=== PATIENT | female | born 1970 | race Caucasian/White ===

== ENCOUNTER 2016-11-14 15:21 | Emergency (ER) | payer MEDICAID, OTHER ==
[~2016-11-14] VITALS: Ht 157.5 cm; Wt 72.5 kg
[2016-11-14 15:25] VITALS: Ht 157.5 cm; Wt 72.5 kg
[2016-11-14] MEDS ORDERED: HYDROCODONE/APAP (5/325) TAB PO ONE (17:00)
[2016-11-14 17:39] LABS: URINE BLOOD (Dip) POC Negative (NEGATIVE)
[2016-11-14] MEDS ORDERED: CEPH-443 PO (17:48)
[2016-11-14] MEDS ORDERED: NAPR-260 PO (17:48)
--- NOTE | 2016-11-14 18:12 | ERD ---
ER Documentation Chief Complaint Date/Time DATE: 11/14/16 TIME: 18:10 Chief Complaint BACK PAIN RADIATING TO LT LEG X 12 DAYS HPI 46-year-old female presents with bilateral flank pain, she also states she has left foot pain. Pain has been for 2 weeks, achy, diffuse. She states it started after she was mopping her she also reports painful urination and frequent urination. She denies any fevers, chills, vomiting diarrhea. Denies abdominal pain. She also states she has plantar pain on the left foot. It is diffuse, achy. ROS All systems reviewed and are negative except as per history of present illness. Medications Home Meds Active Scripts Cephalexin* (Keflex*) 500 Mg Capsule, 500 MG PO TID for 7 Days, CAP Prov:CORRIE LAMBERT PA-C 11/14/16 Naproxen* (Naprosyn*) 500 Mg Tablet, 500 MG PO BID Y for PAIN AND/OR INFLAMMATION, #30 TAB Prov:CORRIE LAMBERT PA-C 11/14/16 Allergies Allergies: Coded Allergies: No Known Allergy (Verified Allergy, Unknown, 12/01/07) PMhx/Soc History of Surgery: No Anesthesia Reaction: No Hx Neurological Disorder: No Hx Respiratory Disorders: No Hx Cardiac Disorders: No Hx Psychiatric Problems: No Hx Miscellaneous Medical Probl: No Hx Alcohol Use: No Hx Substance Use: No Hx Tobacco Use: No Physical Exam Vitals Vital Signs Date Time Temp Pulse Resp B/P Pulse Ox O2 Delivery O2 Flow Rate FiO2 11/14/16 15:25 98.8 78 18 110/58 99 Physical Exam General: Well-developed, well-nourished. The patient appears in no acute distress. HEENT: Head is normocephalic, atraumatic. No scleral icterus. Neck: Supple. Nontender. Lungs: Clear to auscultation. Normal air movement. Heart: Regular rate and rhythm. S1 and S2 are normal. No murmurs, gallops, or rubs. Abdomen: Soft, nontender, nondistended. Bowel sounds are normoactive. Positive CVA tenderness bilaterally Extremities: Tender at the bottom of the left foot, no bony deformities, no ecchymosis. Neurologic: Alert and oriented 3. No focal deficits. Skin: Normal turgor. No rash or lesions. Results 24 hrs Laboratory Tests Test 11/14/16 17:45 Bedside Urine pH (LAB) 7.0 Bedside Urine Protein (LAB) Trace Bedside Urine Glucose (UA) Negative Bedside Urine Ketones (LAB) Negative Bedside Urine Blood Negative Bedside Urine Nitrite (LAB) Negative Bedside Urine Leukocyte Esterase (L Trace Current Medications Medications (Trade) Dose Ordered Sig/Jose Route PRN Reason Start Time Stop Time Status Last Admin Dose Admin Acetaminophen/ Hydrocodone Bitart ([place] (5/325)) 1 tab ONCE ONCE PO 11/14/16 17:00 11/14/16 17:01 DC 11/14/16 17:58 X-ray Foot 3V Interpreted by me as well as radiologist: Bones: No fracture Joints: No dislocation Foreign body: None Procedures/MDM ED course: Patient was given [place] for pain. Patient's left foot was placed in a postop shoe. Medical decision making: This 46-year-old female presents with left foot pain, as well as bilateral flank pain. She has associated frequent urination painful urination will be treated for urinary tract infection. Suspicion for nephrolithiasis,, septic kidney stones, renal failure, dissection, cauda equina , epidural abscess is low. There is no midline pain, no step-offs, no rashes. She will be given Keflex as well as Naprosyn for pain. Left foot is likely from plantar fasciitis. Departure Diagnosis: Primary Impression: Back pain Additional Impression: Foot pain Condition: Good Patient Instructions: Understanding Urinary Tract Infections (UTIs), Treating Tendonitis of the Foot Additional Instructions: Llame al doctor MAANA y roscoe andrea ALEJANDRA PARA DENTRO DE 1-2 GURROLA.Dgale a la secretaria que nosotros le instruimos hacer esta alejandra.Avise o llame si chao condicin se empeora antes de la alejandra. Regresa aqui si peor o no mejor. CORRIE LAMBERT PA-C Nov 14, 2016 18:12
--- NOTE | 2016-11-14 18:12 | RADRPT ---
PROCEDURE: XR Left Foot. CLINICAL INDICATION: Left foot pain. TECHNIQUE: Three views. Frontal, lateral, and oblique. COMPARISON: None. FINDINGS: There is no fracture or dislocation. The soft tissues are normal. Articular surfaces are intact. There is no lytic or blastic lesion. There is no radiopaque foreign body. IMPRESSION: 1. Normal images of the left foot. RPTAT: QQ .Jama Katz MD, MD Date Time Electronically viewed and signed by .Jama Katz MD, on 11/14/2016 18:12 .R/
== END 2016-11-14 18:43 | disposition home or self-care (01) ==
LOC: FTE 15:21
DX: M54.9 Dorsalgia, unspecified (principal); M79.672 Pain in left foot
CPT/HCPCS: 73630; 81003; Z7502; Z7610

== ENCOUNTER 2016-12-03 07:21 | Emergency (ER) | payer MEDICAID ==
[~2016-12-03] VITALS: Ht 157.5 cm; Wt 72.0 kg
[~2016-12-03 07:21] MED LIST: CEPH-443 PO; NAPR-260 PO
[2016-12-03 07:24] VITALS: Ht 157.5 cm; Wt 72.0 kg
[2016-12-03] MEDS ORDERED: KETOROLAC 30 MG INJ IM STA (07:46)
[2016-12-03 07:53] LABS: URINE BLOOD (Dip) POC Negative (NEGATIVE)
--- NOTE | 2016-12-03 08:27 | RADRPT ---
PROCEDURE: Lumbar spine series CLINICAL INDICATION: Pain TECHNIQUE: AP lateral and coned lateral views lumbar spine were obtained COMPARISON: None FINDINGS: There is exaggerated lumbar lordosis. There is no evidence of acute fractures or subluxations. The bony mineralization is normal. No focal bony blastic or lytic lesions. The posterior elements are intact. IMPRESSION: No evidence of fractures or subluxations. RPTAT:AAJJ Physician Silvino Date Time Electronically viewed and signed by Chandni Tamez Physician on 12/03/2016 08:26 /
--- NOTE | 2016-12-03 08:30 | RADRPT ---
PROCEDURE: XR Left Foot. CLINICAL INDICATION: pain x 2 mos TECHNIQUE: AP, lateral , calcaneal and oblique views of the left foot was obtained. Delete the COMPARISON: None. FINDINGS: There is no evidence of acute fractures dislocations. Bony mineralization is normal. No focal bony blastic or lytic lesions. The soft tissues are unremarkable. IMPRESSION: No evidence acute fracture dislocation or erosions. RPTAT:AAJJ Physician Silvino Date Time Electronically viewed and signed by Chandni Tamez Physician on 12/03/2016 08:30 BM/
--- NOTE | 2016-12-03 08:37 | ERD ---
ER Documentation Chief Complaint Date/Time DATE: 12/03/16 TIME: 08:32 Chief Complaint Complains of back pain HPI This a 46-year-old female who presents the emergency department today complaining of back pain and left foot pain for the past 2 months. States he has pain down the right side of her leg. 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 States she has tried acupuncture. States she went to her primary care doctor and had some blood work done and is supposed to get the results in 2 weeks. States she has pain in other areas of her body. States she has some burning with urination. Denies any fevers or chills ROS All systems reviewed and are negative except as per history of present illness. Medications Home Meds Active Scripts Naproxen* (Naprosyn*) 500 Mg Tablet, 500 MG PO BID Y for PAIN AND/OR INFLAMMATION, #30 TAB Prov:LEANDRO TEE PA-C 12/03/16 Cephalexin* (Keflex*) 500 Mg Capsule, 500 MG PO TID for 7 Days, CAP Prov:CORRIE LAMBERT PA-C 11/14/16 Naproxen* (Naprosyn*) 500 Mg Tablet, 500 MG PO BID Y for PAIN AND/OR INFLAMMATION, #30 TAB Prov:CORRIE LAMBERT PA-C 11/14/16 Allergies Allergies: Coded Allergies: No Known Allergy (Verified Allergy, Unknown, 12/01/07) PMhx/Soc Medical and Surgical Hx: pt denies Medical Hx, pt denies Surgical Hx History of Surgery: No Anesthesia Reaction: No Hx Neurological Disorder: No Hx Respiratory Disorders: No Hx Cardiac Disorders: No Hx Psychiatric Problems: No Hx Miscellaneous Medical Probl: No Hx Alcohol Use: No Hx Substance Use: No Hx Tobacco Use: No Smoking Status: Never smoker Physical Exam Vitals Vital Signs Date Time Temp Pulse Resp B/P Pulse Ox O2 Delivery O2 Flow Rate FiO2 12/03/16 07:24 97.5 76 20 113/70 99 Physical Exam Const: Tearful Head: Atraumatic Eyes: Normal Conjunctiva ENT: Normal External Ears, Nose and Mouth. Neck: Full range of motion..~ No meningismus. Resp: Clear to auscultation bilaterally Cardio: Regular rate and rhythm, no murmurs Abd: Soft, non tender, non distended. Normal bowel sounds Skin: No petechiae or rashes Back: No midline tenderness. Bilateral paraspinal tenderness. Decreased range of motion secondary to pain. Pulses 2+. Distal neurovascularly intact Ext: Left foot with no obvious deformity. No effusion. No ecchymosis. Tenderness palpation plantar and calcaneal aspect of foot Psych: Normal Mood and Affect Results 24 hrs Laboratory Tests Test 12/03/16 07:59 Bedside Urine pH (LAB) 6.5 Bedside Urine Protein (LAB) Negative Bedside Urine Glucose (UA) Negative Bedside Urine Ketones (LAB) Negative Bedside Urine Blood Negative Bedside Urine Nitrite (LAB) Negative Bedside Urine Leukocyte Esterase (L Trace Current Medications Medications (Trade) Dose Ordered Sig/Jose Route PRN Reason Start Time Stop Time Status Last Admin Dose Admin Ketorolac Tromethamine (Toradol) 30 mg ONCE STAT IM 12/03/16 07:46 12/03/16 07:48 DC 12/03/16 07:52 DIAGNOSTIC IMAGING REPORT Patient: HORACE CONTE : 1970 Age: 46 Sex: F MR #: [id number] DOS: 12/03/16 0000 Ordering MD: LEANDRO TEE PA-C Location: [facility] Room/Bed: PROCEDURE: XR Left Foot. CLINICAL INDICATION: pain x 2 mos TECHNIQUE: AP, lateral , calcaneal and oblique views of the left foot was obtained. Delete the COMPARISON: None. FINDINGS: There is no evidence of acute fractures dislocations. Bony mineralization is normal. No focal bony blastic or lytic lesions. The soft tissues are unremarkable. IMPRESSION: No evidence acute fracture dislocation or erosions. RPTAT:AAJJ Physician Silvino Date Time Electronically viewed and signed by Physician Silvino on 12/03/2016 08:30 BM/ CC: LEANDRO TEE PA-C DIAGNOSTIC IMAGING REPORT Patient: HORACE CONTE : 1970 Age: 46 Sex: F MR #: [id number] DOS: 12/03/16 0000 Ordering MD: LEANDRO TEE PA-C Location: [facility] Room/Bed: PROCEDURE: Lumbar spine series CLINICAL INDICATION: Pain TECHNIQUE: AP lateral and coned lateral views lumbar spine were obtained COMPARISON: None FINDINGS: There is exaggerated lumbar lordosis. There is no evidence of acute fractures or subluxations. The bony mineralization is normal. No focal bony blastic or lytic lesions. The posterior elements are intact. IMPRESSION: No evidence of fractures or subluxations. RPTAT:AAJJ Physician Silvino Date Time Electronically viewed and signed by Chandni Tamez Physician on 12/03/2016 08:26 BM/ CC: LEANDRO TEE PA-C Procedures/MDM This 46-year-old female who presents the emergency department today complaining of back pain and left foot pain for the past 2 months. Upon review of patient' s medical records this is a patient second visit in the past month for the same complaints. I did obtain images today given patient's persistent complaint Per the radiology report images of the left foot are unremarkable. There is no acute fracture dislocation or erosions. There is no focal bony blastic or lytic lesion. Patient's foot pain most consistent with plantar fasciitis, versus strain. Patient was instructed in wearing proper footwear as the shoes that she is using for work have no support. I have explained this to her. Images of the lumbar spine show an exaggerated lumbar lordosis however there is no evidence of acute fracture or subluxation. There is no focal bony blastic or lytic lesions. Patient symptoms at this time is consistent with sprain versus strain versus chronic pain. UA is negative for infection. Low suspicion for UTI, pyelonephritis or nephrolithiasis as cause of back pain. Patient is afebrile and otherwise well- appearing. Low suspicion for cauda equina abscess. I have explained the results of the patient. I have explained to her that she does need to follow back up with her primary care doctor for referral to orthopedics or physical therapy. Patient was given Toradol here in the emergency department. Patient was given a short course of Naprosyn for home At this time the patient is stable for discharge and outpatient management. Patient should follow up with their PCP in the next 1-2 days. They may return to the emergency department sooner for any persistent or worsening of symptoms. Patient understood and agreed with the plan. Departure Diagnosis: Primary Impression: Back pain Back pain location: low back pain Chronicity: chronic Back pain laterality : bilateral Sciatica presence: with sciatica Sciatica laterality: sciatica of right side Qualified Code: M54.41 - Chronic bilateral low back pain with right-sided sciatica Additional Impression: Foot pain, left Condition: Fair LEANDRO TEE PA-C Dec 03, 2016 08:37
[2016-12-03] MEDS ORDERED: NAPR-260 PO (08:47)
== END 2016-12-03 08:52 | disposition home or self-care (01) ==
LOC: FTE 07:21
DX: M54.41 Lumbago with sciatica, right side (principal); M79.672 Pain in left foot
CPT/HCPCS: 72100; 73630; 81003; 96372; J1885; Z7502

== ENCOUNTER 2017-01-26 01:08 | Emergency (ER) | payer MEDICAID ==
[~2017-01-26] VITALS: Ht 160 cm; Wt 73.5 kg
[2017-01-26 01:19] VITALS: Ht 160 cm; Wt 73.5 kg
[2017-01-26] MEDS ORDERED: KETOROLAC 30 MG INJ IM STA (02:35)
[2017-01-26] MEDS ORDERED: HYDROCODONE/APAP (5/325) TAB PO ONE (03:00)
[2017-01-26] MEDS ORDERED: HYDR-906 PO (03:00)
[2017-01-26] MEDS ORDERED: CYCL-319 PO (03:00)
[2017-01-26] MEDS ORDERED: IBUP800T25 PO (03:00)
--- NOTE | 2017-01-26 03:02 | ERD ---
ER Documentation Chief Complaint Date/Time DATE: 01/26/17 TIME: 03:01 Chief Complaint non traumatic left foot pain x 4 days, worst today HPI 46-year-old female presents with multiple weeks of bilateral foot pain worse on the left. It got worse in the past 4 days. She has been taking naproxen and other anti-inflammatories but it really hurts and is no longer helping. She denies any trauma. She has already had multiple normal x-rays. She is not diabetic. No numbness or tingling. She is ambulatory. ROS All systems reviewed and are negative except as per history of present illness. Medications Home Meds Active Scripts Hydrocodone/Acetaminophen ([place] 5-325 Tablet) 1 Each Tablet, 1 TAB PO Q6H Y for PAIN, #20 TAB Prov:LORIE GORDON PA-C 01/26/17 Ibuprofen* (Motrin*) 800 Mg Tab, 800 MG PO Q6, #30 TAB Prov:LORIE GORDON PA-C 01/26/17 Cyclobenzaprine Hcl* (Cyclobenzaprine Hcl*) 10 Mg Tablet, 10 MG PO TID, #20 TAB Prov:LORIE GORDON PA-C 01/26/17 Naproxen* (Naprosyn*) 500 Mg Tablet, 500 MG PO BID Y for PAIN AND/OR INFLAMMATION, #30 TAB Prov:LEANDRO TEE PA-C 12/03/16 Cephalexin* (Keflex*) 500 Mg Capsule, 500 MG PO TID for 7 Days, CAP Prov:CORRIE LAMBERT PA-C 11/14/16 Naproxen* (Naprosyn*) 500 Mg Tablet, 500 MG PO BID Y for PAIN AND/OR INFLAMMATION, #30 TAB Prov:CORRIE LAMBERT PA-C 11/14/16 Allergies Allergies: Coded Allergies: No Known Allergy (Verified Allergy, Unknown, 12/01/07) PMhx/Soc History of Surgery: No Anesthesia Reaction: No Hx Neurological Disorder: No Hx Respiratory Disorders: No Hx Cardiac Disorders: No Hx Psychiatric Problems: No Hx Miscellaneous Medical Probl: No Hx Alcohol Use: No Hx Substance Use: No Hx Tobacco Use: No Smoking Status: Never smoker FmHx Family History: No diabetes Physical Exam Vitals Vital Signs Date Time Temp Pulse Resp B/P Pulse Ox O2 Delivery O2 Flow Rate FiO2 01/26/17 01:19 97.8 75 20 120/76 99 Physical Exam Const: [] Head: Atraumatic Eyes: Normal Conjunctiva ENT: Normal External Ears, Nose and Mouth. Neck: Full range of motion..~ No meningismus. Resp: Clear to auscultation bilaterally Cardio: Regular rate and rhythm, no murmurs Back: No midline or flank tenderness Ext: tenderness on the plantar surface of bilateral feet Results 24 hrs Current Medications Medications (Trade) Dose Ordered Sig/Jose Route PRN Reason Start Time Stop Time Status Last Admin Dose Admin Ketorolac Tromethamine (Toradol) 30 mg ONCE STAT IM 01/26/17 02:35 01/26/17 02:37 DC 01/26/17 02:50 Acetaminophen/ Hydrocodone Bitart ([place] (5/325)) 1 tab ONCE ONCE PO 01/26/17 03:00 01/26/17 03:01 01/26/17 02:50 Procedures/MDM Patient presents with nontraumatic foot pain. Patients is alert, oriented, well appearing, and in no distress with normal vital signs. There is no fever, tachycardia, or tachypnea. She is neurovascularly intact. There is no trauma therefore no imaging was ordered plus she has already had normal x-rays. She was given Toradol and [place] here and discharged with ibuprofen, [place], and Flexeril and she was also given a cane. Patient counseled regarding my diagnostic impression and care plan. Prior to discharge all questions answered. Pt agrees with treatment plan and understands strict return precautions. Pt is instructed to follow up with primary care provider within 24-48 hours. Precautionary instructions provided including instructions to return to the ER if not improving or for any worsening or changing symptoms or concerns. Departure Diagnosis: Primary Impression: Plantar fasciitis Condition: Stable Patient Instructions: Plantar Fasciitis Additional Instructions: Llame al doctor CARMEN y roscoe andrea ALEJANDRA PARA DENTRO DE 1-2 GURROLA.Dgale a la secretaria que nosotros le instruimos hacer esta alejandra.Avise o llame si chao condicin se empeora antes de la alejandra. Regresa aqui si peor o no mejor. LORIE GORDON PA-C Jan 26, 2017 03:02
[2017-01-26 03:11] VITALS: BP 122/76; PULSE 71; RESP 20
[2017-01-26] MEDS ORDERED: ONDANSETRON (ODT) 4 MG TAB ODT STA (03:34)
== END 2017-01-26 03:15 | disposition home or self-care (01) ==
LOC: FTE 01:08
DX: M72.2 Plantar fascial fibromatosis (principal)
CPT/HCPCS: 96372; J1885; Z7502; Z7610